=== PATIENT | male | born 1980 | race Caucasian/White ===

== ENCOUNTER 2020-02-01 12:02 | Inpatient (IN) | payer MEDICAID ==
[~2020-02-01] VITALS: Ht 190.5 cm; Wt 69.0 kg
[2020-02-01] MEDS ORDERED: NALOXONE 0.4 MG/ML, 1ML ONE (12:14)
--- NOTE | 2020-02-01 12:29 | NUR ---
1227 0.4 mg narcan thru pic[facility], pt more awake after, hr 40s to 50s. bp stable, pt still not very verbal. as
[2020-02-01] MEDS ORDERED: NALOXONE 0.4 MG/ML, 1ML IVPush ONE (12:30)
[2020-02-01] MEDS ORDERED: SODIUM CHLORIDE FLUSH 10ML SYR IVF ONE (12:30)
[2020-02-01] MEDS ORDERED: PLEASE ENTER HEIGHT AND WEIGHT MC SCH (12:30)
[2020-02-01] MEDS ORDERED: SODIUM CHLORIDE 0.9% 1,000 ML IV ONE (12:30)
[2020-02-01] MEDS ORDERED: PLEASE ENTER ALLERGIES MC SCH (12:30)
--- NOTE | 2020-02-01 12:46 | NUR ---
labs/ua sent, cxr pending, fluids infusing, rhythm diff to interpret d/t shaking, hr 40s bp stable. as
[2020-02-01] MEDS ORDERED: NAFC2VIA IV (12:53)
[2020-02-01] MEDS ORDERED: METR-90 PO (12:53)
[2020-02-01] MEDS ORDERED: RIVA15TA PO (12:53)
[2020-02-01] MEDS ORDERED: LEVE500T53 PO (12:53)
[2020-02-01 13:03] LABS: ALANINE AMINOTRANSFERASE 12 U/L (12-78); ALBUMIN 3.3 g/dL (3.4-5.0); ALKALINE PHOSPHATASE 72 U/L (45-117); BILIRUBIN,TOTAL 0.8 mg/dL (0.2-1.0); CREATININE 0.52 mg/dL (0.7-1.3); TOTAL PROTEIN 7.2 g/dL (6.4-8.2)
[2020-02-01 13:06] LABS: ANION GAP 9 mmol/L (5-15); BASOPHILS % (AUTO) 1 % (0-1); CHLORIDE 107 mmol/L (98-107); EOSINOPHILS % (AUTO) 0 % (1-7); LYMPHOCYTES % (AUTO) 13 % (22-44); MEAN CORPUSCULAR HEMOGLOBIN 24.2 pg (27.5-34.5); MEAN CORPUSCULAR HGB CONC 32.3 g/dL (33.2-36.2); MEAN PLATELET VOLUME 7.3 fL (7.4-10.4); MONOCYTES % (AUTO) 5 % (2-9); NEUTROPHILS % (AUTO) 81 % (42-75); PLATELET COUNT 276 x10^3/uL (130-400); RED BLOOD COUNT 5.48 x10^6/uL (4.38-5.82); RED CELL DISTRIBUTION WIDTH 24.9 % (9.4-14.8)
[2020-02-01 13:07] LABS: SALICYLATE LEVEL < 1.7 mg/dL (2.8-20.0)
--- NOTE | 2020-02-01 13:15 | NUR ---
pt laying in bed intermittnetly shaking, hr 60-70s. as
[2020-02-01 13:44] LABS: MICROSCOPIC NOT IND
[2020-02-01 14:01] LABS: AMPHETAMINE SCREEN, URINE Negative (Negative); BARBITURATE SCREEN, URINE Negative (Negative); BENZODIAZEPINE SCREEN, URINE Negative (Negative); CANNABINOID SCREEN, URINE Negative (Negative); COCAINE SCREEN, URINE Negative (Negative); METHADONE SCREEN, URINE Negative (Negative); OPIATE SCREEN, URINE Negative (Negative)
[2020-02-01] MEDS ORDERED: LORazepam 2 MG/ML, 1ML ONE (14:12)
--- NOTE | 2020-02-01 14:18 | NUR ---
ct head abnormal. ativan 1 mg per mar for mri bc pt shaking, pt on monitor w/ emt-a to mri. as
[2020-02-01 14:27] LABS: MD MORPH REVIEW ONLY
[2020-02-01 14:28] LABS: ANISOCYTOSIS 1+; MICROCYTOSIS 1+
[2020-02-01 14:29] LABS: <PLATELET ESTIMATE> ADEQUATE; <PLT MORPHOLOGY> NORMAL PLT MORPH; OVALOCYTES 1+
[2020-02-01] MEDS ORDERED: LORazepam 2 MG/ML, 1ML IVPush ONE (14:30)
[2020-02-01] MEDS ORDERED: GADOTERATE 10 MMOL/20 ML SYR ONE (14:38)
[2020-02-01] MEDS ORDERED: MEROPENEM 2 GM in SODIUM CHLORIDE 0.9% 100 ML IV ONE (15:00)
--- NOTE | 2020-02-01 15:09 | NUR ---
pt drowsing, wakes to touch, nonverbal. liza 2. mri results pending. to be icu adm. arash og from pharm. as
[2020-02-01 15:22] LABS: INTERNATIONAL NORMALIZED RATIO 1.53 (0.93-1.1); PROTHROMBIN TIME 16.1 Seconds (9.6-11.5)
--- NOTE | 2020-02-01 15:41 | NUR ---
delay in abx bc pharmacy did not send, had to call pharm. liza quinones. awaiting nsg consult. chris rodrigues walked to lab. as
[2020-02-01] MEDS ORDERED: SODIUM CHLORIDE FLUSH 10ML SYR IVF PRN (16:30)
--- NOTE | 2020-02-01 16:49 | NUR ---
CONT TO AWAIT NSG CONSULT, RAPID COVID NEG, AWAITING BED ASSIGNMENT.
[2020-02-01] MEDS ORDERED: ONDANSETRON 2MG/ML, 2ML IVPush PRN (17:00)
--- NOTE | 2020-02-01 17:01 | NUR ---
luzmaria og from pharm. as
--- NOTE | 2020-02-01 17:12 | NUR ---
Melania hernandez in [facility] - 02/01/20 at 1712 by GIULIANO REPORT TO KAREN RUGGIERO IN [facility].
--- NOTE | 2020-02-01 17:13 | NUR ---
report to mona ren [facility]. as
[2020-02-01] MEDS ORDERED: FENTANYL PF 100 MCG/2ML ONE ×3 (17:46→23:51)
[2020-02-01] MEDS ORDERED: HUM PROTHROMBIN CPLX IV ONE ×2 (18:00→18:30)
[2020-02-01] MEDS ORDERED: [UNRECOGNIZED DRUG - OTHER] IV ONE (18:00)
[2020-02-01] MEDS ORDERED: THROMBIN 5,000 UNIT VIAL TP ONE (18:06)
[2020-02-01] MEDS ORDERED: EPINEPHRINE 1 MG/ML, 1ML ONE (18:06)
[2020-02-01] MEDS ORDERED: BACITRACIN 50,000 UNIT ONE (18:06)
[2020-02-01] MEDS ORDERED: BUPIVACAINE/PF 0.5% ONE (18:06)
[2020-02-01] MEDS ORDERED: ROCURONIUM 10MG/ML,5ML ONE (18:25)
[2020-02-01] MEDS ORDERED: PROPOFOL 10 MG/ML, 20ML ONE (18:25)
[2020-02-01] MEDS ORDERED: LIDOCAINE-MPF 2% ,5ML ONE (18:25)
[2020-02-01] MEDS ORDERED: CEFAZOLIN 1,000 MG ONE (18:25)
[2020-02-01] MEDS ORDERED: MIDAZOLAM 1 MG/ML, 2ML ONE (18:28)
[2020-02-01] MEDS ORDERED: [UNRECOGNIZED DRUG - OTHER] IV ONE (18:30)
[2020-02-01] MEDS: PROPOFOL 100 ML IV PRN (19:00)
[2020-02-01] MEDS ORDERED: PROPOFOL 100 ML IV ONE ×2 (19:30→23:13)
[2020-02-01] MEDS: LEVETIRACETAM 500 MG in SODIUM CHLORIDE 0.9% 100 ML IV SCH (21:06)
[2020-02-02] MEDS: PROPOFOL 100 ML IV PRN ×2 (00:11→03:57)
[2020-02-02] MEDS: FENTANYL PF 100 MCG/2ML IVPush PRN (00:30)
[2020-02-02] MEDS: MEROPENEM 2 GM in SODIUM CHLORIDE 0.9% 100 ML IV SCH ×3 (00:37→18:44)
[2020-02-02 04:00] VITALS: BP 93/58
[2020-02-02 04:52] LABS: BASOPHILS % (AUTO) 1 % (0-1); EOSINOPHILS % (AUTO) 1 % (1-7); LYMPHOCYTES % (AUTO) 40 % (22-44); MEAN CORPUSCULAR HEMOGLOBIN 24.5 pg (27.5-34.5); MEAN CORPUSCULAR HGB CONC 32.4 g/dL (33.2-36.2); MEAN PLATELET VOLUME 7.5 fL (7.4-10.4); MONOCYTES % (AUTO) 8 % (2-9); NEUTROPHILS % (AUTO) 51 % (42-75); PLATELET COUNT 232 x10^3/uL (130-400); RED BLOOD COUNT 4.84 x10^6/uL (4.38-5.82); RED CELL DISTRIBUTION WIDTH 25.3 % (9.4-14.8)
[2020-02-02 04:58] LABS: % IRON SATURATION 13 % (20-55); ALANINE AMINOTRANSFERASE 7 U/L (12-78); ALBUMIN 2.7 g/dL (3.4-5.0); ANION GAP 6 mmol/L (5-15); CALCIUM 8.3 mg/dL (8.5-10.1); CHLORIDE 110 mmol/L (98-107); CREATININE 0.46 mg/dL (0.7-1.3); IRON LEVEL 29 mcg/dL (65-175); TOTAL IRON BINDING CAPACITY 216 mcg/dL (250-450)
[2020-02-02 05:01] LABS: ALKALINE PHOSPHATASE 56 U/L (45-117); BILIRUBIN,TOTAL 0.6 mg/dL (0.2-1.0)
[2020-02-02 05:51] LABS: MD SCAN
[2020-02-02] MEDS: LEVETIRACETAM 500 MG in SODIUM CHLORIDE 0.9% 100 ML IV SCH ×2 (08:52→22:23)
[2020-02-02] MEDS: POTASSIUM CHLORIDE 40 MEQ in SODIUM CHLORIDE 0.45% 1,000 ML IV SCH ×2 (09:40→23:13)
--- NOTE | 2020-02-02 09:42 | NUR ---
TF Recommendations as Needed: On propofol: Vital AF 1.2 full goal 75 ml/hr OFF propfol: Vital AF 1.2 full goal 80 ml/hr
[2020-02-02] MEDS ORDERED: MAGNESIUM SULFATE PMX 2GM/50ML 50 ML IV ONE (10:00)
[2020-02-02] MEDS: POTASSIUM CHLORIDE 40 MEQ in SODIUM CHLORIDE 0.9% 100 ML IV SCH ×2 (10:08→18:43)
[2020-02-02] MEDS: PANTOPRAZOLE 40 MG IV IVPush SCH (11:00)
[2020-02-02] MEDS ORDERED: SODIUM CHLORIDE 0.9%, 500ML IVBOLUS ONE (17:00)
[2020-02-03] MEDS: MEROPENEM 2 GM in SODIUM CHLORIDE 0.9% 100 ML IV SCH ×3 (02:41→17:32)
[2020-02-03] MEDS: PANTOPRAZOLE 40 MG IV IVPush SCH (05:16)
[2020-02-03 06:33] VITALS: BP 111/77
[2020-02-03] MEDS: LEVETIRACETAM 500 MG in SODIUM CHLORIDE 0.9% 100 ML IV SCH ×2 (09:13→21:50)
[2020-02-04] MEDS: MEROPENEM 2 GM in SODIUM CHLORIDE 0.9% 100 ML IV SCH ×3 (03:26→21:49)
[2020-02-04 04:00] VITALS: BP 99/70
[2020-02-04] MEDS: PANTOPRAZOLE 40 MG IV IVPush SCH (06:14)
[2020-02-04] MEDS: LEVETIRACETAM 500 MG in SODIUM CHLORIDE 0.9% 100 ML IV SCH ×2 (08:00→20:59)
[2020-02-04 09:15] LABS: BASOPHILS % (AUTO) 1 % (0-1); EOSINOPHILS % (AUTO) 1 % (1-7); LYMPHOCYTES % (AUTO) 24 % (22-44); MEAN CORPUSCULAR HEMOGLOBIN 24.6 pg (27.5-34.5); MEAN CORPUSCULAR HGB CONC 32.5 g/dL (33.2-36.2); MEAN PLATELET VOLUME 7.6 fL (7.4-10.4); MONOCYTES % (AUTO) 6 % (2-9); NEUTROPHILS % (AUTO) 69 % (42-75); PLATELET COUNT 236 x10^3/uL (130-400); RED BLOOD COUNT 5.21 x10^6/uL (4.38-5.82); RED CELL DISTRIBUTION WIDTH 25.1 % (9.4-14.8)
[2020-02-04 09:23] LABS: ANION GAP 10 mmol/L (5-15); CALCIUM 8.7 mg/dL (8.5-10.1); CHLORIDE 106 mmol/L (98-107); CREATININE 0.43 mg/dL (0.7-1.3)
[2020-02-04 12:31] LABS: MD SCAN
[2020-02-04] MEDS ORDERED: POTASSIUM CHLORIDE 20 MEQ TAB.ER.PRT PO ONE (17:30)
[2020-02-04] MEDS ORDERED: MAGNESIUM SULFATE PMX 2GM/50ML 50 ML IV ONE (17:30)
[2020-02-04] MEDS ORDERED: MERO1PIG IV (18:40)
[2020-02-04] MEDS ORDERED: LEVE500T53 PO (18:40)
[2020-02-05 05:00] VITALS: BP 100/66
[2020-02-05] MEDS: PANTOPRAZOLE 40MG TABLET PO SCH (06:07)
[2020-02-05] MEDS: MEROPENEM 2 GM in SODIUM CHLORIDE 0.9% 100 ML IV SCH ×3 (06:45→22:56)
[2020-02-05] MEDS: LEVETIRACETAM 500 MG in SODIUM CHLORIDE 0.9% 100 ML IV SCH ×2 (08:20→21:53)
[2020-02-05 08:55] LABS: BASOPHILS % (AUTO) 1 % (0-1); EOSINOPHILS % (AUTO) 1 % (1-7); LYMPHOCYTES % (AUTO) 24 % (22-44); MEAN CORPUSCULAR HEMOGLOBIN 24.5 pg (27.5-34.5); MEAN CORPUSCULAR HGB CONC 32.4 g/dL (33.2-36.2); MEAN PLATELET VOLUME 7.7 fL (7.4-10.4); MONOCYTES % (AUTO) 7 % (2-9); NEUTROPHILS % (AUTO) 68 % (42-75); PLATELET COUNT 248 x10^3/uL (130-400); RED BLOOD COUNT 5.51 x10^6/uL (4.38-5.82); RED CELL DISTRIBUTION WIDTH 24.6 % (9.4-14.8)
[2020-02-05 09:13] LABS: ANION GAP 10 mmol/L (5-15); CALCIUM 8.6 mg/dL (8.5-10.1); CHLORIDE 110 mmol/L (98-107); CREATININE 0.43 mg/dL (0.7-1.3)
[2020-02-05 09:44] LABS: MD SCAN
[2020-02-05] MEDS ORDERED: POTASSIUM CHLORIDE 20 MEQ TAB.ER.PRT PO ONE (13:30)
[2020-02-06] MEDS: MEROPENEM 2 GM in SODIUM CHLORIDE 0.9% 100 ML IV SCH ×3 (05:52→21:56)
[2020-02-06] MEDS: PANTOPRAZOLE 40MG TABLET PO SCH (05:56)
[2020-02-06] MEDS: LEVETIRACETAM 500 MG in SODIUM CHLORIDE 0.9% 100 ML IV SCH ×2 (09:10→20:09)
[2020-02-07] MEDS: MEROPENEM 2 GM in SODIUM CHLORIDE 0.9% 100 ML IV SCH ×3 (05:44→22:00)
[2020-02-07] MEDS: PANTOPRAZOLE 40MG TABLET PO SCH (05:48)
[2020-02-07] MEDS: LEVETIRACETAM 500 MG in SODIUM CHLORIDE 0.9% 100 ML IV SCH ×2 (09:02→20:34)
[2020-02-08] MEDS: MEROPENEM 2 GM in SODIUM CHLORIDE 0.9% 100 ML IV SCH ×3 (06:09→22:36)
[2020-02-08] MEDS: PANTOPRAZOLE 40MG TABLET PO SCH (06:09)
[2020-02-08 08:31] LABS: BASOPHILS % (AUTO) 2 % (0-1); EOSINOPHILS % (AUTO) 1 % (1-7); LYMPHOCYTES % (AUTO) 26 % (22-44); MEAN CORPUSCULAR HEMOGLOBIN 24.6 pg (27.5-34.5); MEAN CORPUSCULAR HGB CONC 32.2 g/dL (33.2-36.2); MEAN PLATELET VOLUME 7.8 fL (7.4-10.4); MONOCYTES % (AUTO) 7 % (2-9); NEUTROPHILS % (AUTO) 63 % (42-75); PLATELET COUNT 302 x10^3/uL (130-400); RED BLOOD COUNT 5.95 x10^6/uL (4.38-5.82)
[2020-02-08 08:37] LABS: MD NO
[2020-02-08 08:40] LABS: ANION GAP 7 mmol/L (5-15); CALCIUM 8.9 mg/dL (8.5-10.1); CHLORIDE 109 mmol/L (98-107); CREATININE 0.56 mg/dL (0.7-1.3)
[2020-02-08] MEDS: LEVETIRACETAM 500 MG in SODIUM CHLORIDE 0.9% 100 ML IV SCH ×2 (09:11→20:31)
[2020-02-09] MEDS: MEROPENEM 2 GM in SODIUM CHLORIDE 0.9% 100 ML IV SCH ×3 (05:58→23:26)
[2020-02-09] MEDS: PANTOPRAZOLE 40MG TABLET PO SCH (05:58)
[2020-02-09] MEDS: LEVETIRACETAM 500 MG in SODIUM CHLORIDE 0.9% 100 ML IV SCH ×2 (11:11→22:25)
[2020-02-10] MEDS: MEROPENEM 2 GM in SODIUM CHLORIDE 0.9% 100 ML IV SCH ×3 (07:59→23:36)
[2020-02-10] MEDS: LEVETIRACETAM 500 MG TABLET PO SCH ×2 (08:00→20:37)
[2020-02-11 04:29] LABS: BASOPHILS % (AUTO) 2 % (0-1); EOSINOPHILS % (AUTO) 1 % (1-7); LYMPHOCYTES % (AUTO) 38 % (22-44); MEAN CORPUSCULAR HEMOGLOBIN 25.4 pg (27.5-34.5); MEAN CORPUSCULAR HGB CONC 32.7 g/dL (33.2-36.2); MEAN PLATELET VOLUME 7.8 fL (7.4-10.4); MONOCYTES % (AUTO) 6 % (2-9); NEUTROPHILS % (AUTO) 53 % (42-75); PLATELET COUNT 279 x10^3/uL (130-400); RED BLOOD COUNT 5.71 x10^6/uL (4.38-5.82); RED CELL DISTRIBUTION WIDTH 24.5 % (9.4-14.8)
[2020-02-11 04:36] LABS: ANION GAP 3 mmol/L (5-15); CALCIUM 8.9 mg/dL (8.5-10.1); CHLORIDE 110 mmol/L (98-107); CREATININE 0.66 mg/dL (0.7-1.3)
[2020-02-11 05:49] LABS: MD SCAN
[2020-02-11] MEDS: POTASSIUM CHLORIDE 20 MEQ TAB.ER.PRT PO ONE ×2 (07:00→07:49)
[2020-02-11] MEDS: LEVETIRACETAM 500 MG TABLET PO SCH ×2 (07:50→20:27)
[2020-02-11] MEDS: MEROPENEM 2 GM in SODIUM CHLORIDE 0.9% 100 ML IV SCH ×3 (08:54→23:50)
[2020-02-11] MEDS ORDERED: GADOTERATE 7.5 MMOL/15 ML VIAL ONE (17:31)
[2020-02-12] MEDS: MEROPENEM 2 GM in SODIUM CHLORIDE 0.9% 100 ML IV SCH ×2 (08:53→17:08)
[2020-02-12] MEDS: LEVETIRACETAM 500 MG TABLET PO SCH ×2 (09:02→21:14)
[2020-02-13] MEDS: MEROPENEM 2 GM in SODIUM CHLORIDE 0.9% 100 ML IV SCH ×2 (01:14→10:58)
[2020-02-13 04:43] LABS: BASOPHILS % (AUTO) 1 % (0-1); EOSINOPHILS % (AUTO) 1 % (1-7); LYMPHOCYTES % (AUTO) 41 % (22-44); MEAN CORPUSCULAR HEMOGLOBIN 25.6 pg (27.5-34.5); MEAN PLATELET VOLUME 7.6 fL (7.4-10.4); MONOCYTES % (AUTO) 8 % (2-9); NEUTROPHILS % (AUTO) 48 % (42-75); PLATELET COUNT 295 x10^3/uL (130-400); RED BLOOD COUNT 5.78 x10^6/uL (4.38-5.82); RED CELL DISTRIBUTION WIDTH 24.1 % (9.4-14.8)
[2020-02-13 04:56] LABS: ANION GAP 5 mmol/L (5-15); CALCIUM 9.1 mg/dL (8.5-10.1); CHLORIDE 110 mmol/L (98-107); CREATININE 0.55 mg/dL (0.7-1.3)
[2020-02-13 05:57] LABS: MD SCAN
[2020-02-13] MEDS: LEVETIRACETAM 500 MG TABLET PO SCH ×2 (10:58→20:13)
[2020-02-13] MEDS: NAFCILLIN 2 GM in DEXTROSE 5% 100 ML IV SCH ×3 (12:14→20:12)
[2020-02-13 12:16] LABS: HCT (SEDRATE) 44.5 % (39.2-51.8)
[2020-02-13] MEDS ORDERED: OMNIPAQUE 350 MG/ML, 75ML BOTTLE ONE (16:03)
[2020-02-14] MEDS: NAFCILLIN 2 GM in DEXTROSE 5% 100 ML IV SCH ×6 (00:26→19:57)
[2020-02-14] MEDS: LEVETIRACETAM 500 MG TABLET PO SCH ×2 (09:15→19:57)
[2020-02-14 11:35] VITALS: BP 104/71
[2020-02-14 14:25] VITALS: BP 107/73
[2020-02-14 18:51] VITALS: BP 111/76
[2020-02-15 00:01] VITALS: BP 112/72
[2020-02-15] MEDS: NAFCILLIN 2 GM in DEXTROSE 5% 100 ML IV SCH ×7 (00:51→23:37)
[2020-02-15 08:25] VITALS: BP 91/60
[2020-02-15] MEDS: LEVETIRACETAM 500 MG TABLET PO SCH ×2 (10:15→20:40)
[2020-02-15 14:10] VITALS: BP 102/70
[2020-02-15] MEDS: FENTANYL PF 100 MCG/2ML IVPush PRN (14:14)
[2020-02-15 20:08] VITALS: BP 93/60
[2020-02-16 00:13] VITALS: BP 99/64
[2020-02-16] MEDS: NAFCILLIN 2 GM in DEXTROSE 5% 100 ML IV SCH ×6 (04:19→23:47)
[2020-02-16 05:45] LABS: ANION GAP 7 mmol/L (5-15); CALCIUM 9.2 mg/dL (8.5-10.1); CHLORIDE 109 mmol/L (98-107)
[2020-02-16 05:49] LABS: BASOPHILS % (AUTO) 1 % (0-1); EOSINOPHILS % (AUTO) 1 % (1-7); LYMPHOCYTES % (AUTO) 27 % (22-44); MEAN CORPUSCULAR HEMOGLOBIN 25.9 pg (27.5-34.5); MEAN CORPUSCULAR HGB CONC 33.3 g/dL (33.2-36.2); MEAN PLATELET VOLUME 8.2 fL (7.4-10.4); MONOCYTES % (AUTO) 8 % (2-9); NEUTROPHILS % (AUTO) 62 % (42-75); PLATELET COUNT 300 x10^3/uL (130-400); RED BLOOD COUNT 5.72 x10^6/uL (4.38-5.82); RED CELL DISTRIBUTION WIDTH 23.6 % (9.4-14.8)
[2020-02-16 05:54] LABS: MD NO
[2020-02-16 08:15] VITALS: BP 111/75
[2020-02-16] MEDS ORDERED: CEFTRIAXONE 1,000 MG IM ONE (08:30)
[2020-02-16] MEDS: LEVETIRACETAM 500 MG TABLET PO SCH ×2 (09:18→20:24)
[2020-02-16 16:02] VITALS: BP 103/67
[2020-02-16 16:31] VITALS: BP 103/67
[2020-02-16 18:57] VITALS: BP 124/83
[2020-02-17 00:57] VITALS: BP 106/67
[2020-02-17] MEDS: NAFCILLIN 2 GM in DEXTROSE 5% 100 ML IV SCH ×5 (03:23→19:58)
[2020-02-17 07:15] VITALS: BP 99/63
[2020-02-17] MEDS: LEVETIRACETAM 500 MG TABLET PO SCH ×2 (08:19→19:58)
[2020-02-17 12:25] VITALS: BP 101/64
[2020-02-17 20:42] VITALS: BP 107/66
[2020-02-17 22:59] VITALS: BP 105/66
[2020-02-18] MEDS: NAFCILLIN 2 GM in DEXTROSE 5% 100 ML IV SCH ×6 (00:25→20:29)
[2020-02-18 04:38] LABS: HCT (SEDRATE) 41.7 % (39.2-51.8)
[2020-02-18 04:43] LABS: BASOPHILS % (AUTO) 1 % (0-1); EOSINOPHILS % (AUTO) 2 % (1-7); LYMPHOCYTES % (AUTO) 34 % (22-44); MEAN CORPUSCULAR HEMOGLOBIN 25.7 pg (27.5-34.5); MEAN CORPUSCULAR HGB CONC 33.4 g/dL (33.2-36.2); MEAN PLATELET VOLUME 8.2 fL (7.4-10.4); MONOCYTES % (AUTO) 7 % (2-9); NEUTROPHILS % (AUTO) 56 % (42-75); PLATELET COUNT 271 x10^3/uL (130-400); RED BLOOD COUNT 5.38 x10^6/uL (4.38-5.82); RED CELL DISTRIBUTION WIDTH 23.2 % (9.4-14.8)
[2020-02-18 04:47] LABS: ALANINE AMINOTRANSFERASE 13 U/L (12-78); ALBUMIN 3.2 g/dL (3.4-5.0); ANION GAP 7 mmol/L (5-15); CHLORIDE 110 mmol/L (98-107); CREATININE 0.64 mg/dL (0.7-1.3)
[2020-02-18 04:56] LABS: ALKALINE PHOSPHATASE 84 U/L (45-117); BILIRUBIN,TOTAL 0.9 mg/dL (0.2-1.0); C-REACTIVE PROTEIN, QUANT 3.32 mg/dL (0.02-0.49); TOTAL PROTEIN 7.3 g/dL (6.4-8.2)
[2020-02-18 05:52] LABS: MD SCAN
[2020-02-18 06:50] VITALS: BP 105/70
[2020-02-18] MEDS ORDERED: POTASSIUM CHLORIDE 20 MEQ TAB.ER.PRT PO ONE (07:30)
[2020-02-18] MEDS: LEVETIRACETAM 500 MG TABLET PO SCH ×2 (08:05→20:29)
[2020-02-18 14:05] VITALS: BP 108/80
[2020-02-18 20:48] VITALS: BP 109/74
[2020-02-19 01:29] VITALS: BP 106/72
[2020-02-19] MEDS: NAFCILLIN 2 GM in DEXTROSE 5% 100 ML IV SCH ×6 (01:34→21:27)
[2020-02-19 06:42] LABS: ANION GAP 8 mmol/L (5-15); CALCIUM 9.3 mg/dL (8.5-10.1); CHLORIDE 113 mmol/L (98-107)
[2020-02-19 06:45] LABS: CREATININE 0.73 mg/dL (0.7-1.3)
[2020-02-19 06:50] VITALS: BP 116/80
[2020-02-19] MEDS: LEVETIRACETAM 500 MG TABLET PO SCH ×2 (10:42→21:27)
[2020-02-19 12:50] VITALS: BP 121/82
[2020-02-19 18:30] VITALS: BP 101/66
[2020-02-19 23:24] VITALS: BP 111/73
[2020-02-20] MEDS: NAFCILLIN 2 GM in DEXTROSE 5% 100 ML IV SCH ×6 (01:18→21:15)
[2020-02-20 09:14] VITALS: BP 111/74
[2020-02-20] MEDS: LEVETIRACETAM 500 MG TABLET PO SCH ×2 (09:32→21:00)
[2020-02-20 12:58] VITALS: BP 102/68
[2020-02-20 19:12] VITALS: BP 111/73
[2020-02-21 01:13] VITALS: BP 130/78
[2020-02-21] MEDS: NAFCILLIN 2 GM in DEXTROSE 5% 100 ML IV SCH ×6 (01:47→21:19)
[2020-02-21 07:14] LABS: BASOPHILS % (AUTO) 1 % (0-1); EOSINOPHILS % (AUTO) 1 % (1-7); LYMPHOCYTES % (AUTO) 28 % (22-44); MEAN CORPUSCULAR HEMOGLOBIN 25.5 pg (27.5-34.5); MEAN CORPUSCULAR HGB CONC 32.6 g/dL (33.2-36.2); MEAN PLATELET VOLUME 7.8 fL (7.4-10.4); MONOCYTES % (AUTO) 7 % (2-9); NEUTROPHILS % (AUTO) 63 % (42-75); PLATELET COUNT 284 x10^3/uL (130-400); RED BLOOD COUNT 5.53 x10^6/uL (4.38-5.82)
[2020-02-21 07:18] VITALS: BP 108/70
[2020-02-21 07:44] LABS: <PLATELET ESTIMATE> ADEQUATE; <PLT MORPHOLOGY> NORMAL PLT MORPH; ANISOCYTOSIS 1+; MD MORPH REVIEW ONLY; MICROCYTOSIS 1+; OVALOCYTES 1+
[2020-02-21] MEDS: LEVETIRACETAM 500 MG TABLET PO SCH ×2 (08:18→21:22)
[2020-02-21 14:03] VITALS: BP 114/73
[2020-02-21 20:24] VITALS: BP 113/71
[2020-02-22] MEDS: NAFCILLIN 2 GM in DEXTROSE 5% 100 ML IV SCH ×4 (01:10→15:03)
[2020-02-22 01:31] VITALS: BP 118/80
[2020-02-22 07:35] VITALS: BP 106/74
[2020-02-22] MEDS: LEVETIRACETAM 500 MG TABLET PO SCH (10:28)
[2020-02-22 12:55] VITALS: BP 117/84
[2020-02-22] MEDS ORDERED: NAFC2FRO IV (13:18)
[2020-02-22] MEDS ORDERED: LORazepam 2 MG/ML, 1ML IVPush ONE (16:30)
== END 2020-02-22 17:15 | DRG 853 ==
LOC: SUATTDRO 14:30 → ED 15:05 → EDIP 16:02 → CCU 17:33 → 5SO 02-14 11:30 → 4NW 02-20 18:35
PROVIDERS: ADMIT Internal Medicine; ATTEND Family Medicine
PROC: 0T9B70Z Drainage of Bladder with Drainage Device, Via Natural or Artificial Opening (ICD-10-PCS; 2020-02-01)
PROC: 5A1935Z Respiratory Ventilation, Less than 24 Consecutive Hours (ICD-10-PCS; 2020-02-01)
PROC: 0BH17EZ Insertion of Endotracheal Airway into Trachea, Via Natural or Artificial Opening (ICD-10-PCS; 2020-02-01)
PROC: 009630Z Drainage of Cerebral Ventricle with Drainage Device, Percutaneous Approach (ICD-10-PCS; principal; 2020-02-01 18:00)
PROC: 02HV33Z Insertion of Infusion Device into Superior Vena Cava, Percutaneous Approach (ICD-10-PCS; 2020-02-16)
PROC: B5181ZA Fluoroscopy of Superior Vena Cava using Low Osmolar Contrast, Guidance (ICD-10-PCS; 2020-02-16)
PROC: B548ZZA Ultrasonography of Superior Vena Cava, Guidance (ICD-10-PCS; 2020-02-16)
PROC: 02HV33Z Insertion of Infusion Device into Superior Vena Cava, Percutaneous Approach (ICD-10-PCS; 2020-02-21)
PROC: B5181ZA Fluoroscopy of Superior Vena Cava using Low Osmolar Contrast, Guidance (ICD-10-PCS; 2020-02-21)
PROC: B548ZZA Ultrasonography of Superior Vena Cava, Guidance (ICD-10-PCS; 2020-02-21)
DX: A41.01 Sepsis due to Methicillin susceptible Staphylococcus aureus (principal); G00.3 Staphylococcal meningitis; G06.0 Intracranial abscess and granuloma; G04.90 Encephalitis and encephalomyelitis, unspecified; G93.41 Metabolic encephalopathy; G93.5 Compression of brain; G93.6 Cerebral edema; J96.01 Acute respiratory failure with hypoxia; D68.69 Other thrombophilia; G91.0 Communicating hydrocephalus; I48.92 Unspecified atrial flutter; L02.415 Cutaneous abscess of right lower limb; L02.416 Cutaneous abscess of left lower limb; Z99.11 Dependence on respirator [ventilator] status; Z20.828 Contact with and (suspected) exposure to other viral communicable diseases; D70.2 Other drug-induced agranulocytosis; E87.6 Hypokalemia; F11.10 Opioid abuse, uncomplicated; F15.10 Other stimulant abuse, uncomplicated; G40.909 Epilepsy, unspecified, not intractable, without status epilepticus; G93.89 Other specified disorders of brain; H55.00 Unspecified nystagmus; J32.0 Chronic maxillary sinusitis; K02.9 Dental caries, unspecified; K04.7 Periapical abscess without sinus; Z79.01 Long term (current) use of anticoagulants; Z86.61 Personal history of infections of the central nervous system; Z88.8 Allergy status to other drugs, medicaments and biological substances
CPT/HCPCS: 36415; 36600; 80177; 87806; J3490; S0020; 36573; 70450; 70487; 70553; 71045; 80048; 80053; 80307; 81003; 82247; 82803; 82962; 83540; 83550; 83735; 84100; 85025; 85610; 85651; 85730; 86140; 86705; 86706; 86803; 87040; 87070; 87081; 87205; 87340; 87635; 93005; 94002; 94003; C1729; G0378; J0171; J0690; J0696; J1953; J2185; J2250; J2310; J2704; J3010; J3480; Q9967; 92523-GN; A9575; C1751; C1894; C1932; C9113; G0475; J2060; J3475; J7030; U0003